=== PATIENT | male | born 1985 | race African-American/Black ===

== ENCOUNTER 2024-01-06 09:16 | Emergency (ER) | payer SELFPAY ==
[2024-01-06 10:35] LABS: Influenza A by NAA Not Detected (NotDetected); Influenza B by NAA Not Detected (NotDetected); SARS-CoV-2 NAA Rapid Test Not Detected (NotDetected)
== END 2024-01-06 11:05 | disposition home or self-care (01) ==
LOC: ERS 09:16
DX: J06.9 Acute upper respiratory infection, unspecified (principal); I10 Essential (primary) hypertension
CPT/HCPCS: 71046; 87081; 87430